=== PATIENT | male | born 1945 | race Caucasian/White ===

== ENCOUNTER 2018-11-03 08:48 | Emergency (ER) | payer MEDICARE, OTHER ==
--- NOTE | 2018-11-03 10:24 | ER Document Report ---
ED Medical Screen (RME) - General Chief Complaint: Weakness Stated Complaint: WEAKNESS Time Seen by Provider: 11/03/18 10:14 Mode of Arrival: Ambulatory Information source: Patient TRAVEL OUTSIDE OF THE [place] IN LAST 30 DAYS: No - HPI Patient complains to provider of: WEAKNESS, ABDO BLOATING Notes: 11/03/18 10:22 Patient here with complaints of weakness, shaking, abdominal bloating and decreased appetite. Patient states that this started 2 days ago. He woke up in the middle the night sweats shaking and drenched in sweat. Has been extremely thirsty and drinking a lot but has had no appetite. He denies any abdominal pain, but has had some abdominal bloating. His states that he had a very similar episode to this years ago and ended up diagnosed with diverticulitis even though he had no abdominal pain. She states that it was exactly the same as the episode he is having now. He denies any abdominal pain at this time. Exam Exam Nontoxic, no distress. Heart sounds normal. Coarse breath sounds throughout. No focal abdominal tenderness on limited triage abdominal exam. No CVA tenderness. Plan CBC, CMP, urinalysis, lipase. Saline lock. Accu-Chek. Since the patient has had similar symptoms in the past that were due to diverticulitis with similar presentation, I have ordered a CT of the abdomen pelvis with IV contrast to rule this out. An initial examination was made on the patient as part of the triage process, and it was determined a more comprehensive evaluation was necessary. Initial labs were ordered and patient was transferred to another provider in the ED who assumed care and finished evaluation and plan. - Related Data Allergies/Adverse Reactions: Sulfa (Sulfonamide Antibiotics) Allergy (Verified 11/03/18 08:49) Past Medical History - Past Medical History Cardiac Medical History: Reports: Hx Hypertension Renal/ Medical History: Denies: Hx Peritoneal Dialysis Physical Exam - Vital signs Vitals: Temp Pulse Resp BP Pulse Ox 98 F 71 16 138/54 H 93 11/03/18 08:59 11/03/18 08:59 11/03/18 08:59 11/03/18 08:59 11/03/18 08:59 Course - Vital Signs Vital signs: Temp Pulse Resp BP Pulse Ox 98 F 71 16 138/54 H 93 11/03/18 08:59 11/03/18 08:59 11/03/18 08:59 11/03/18 08:59 11/03/18 08:59
[2018-11-03 11:17] LABS: ABSOLUTE LYMPHOCYTES (AUTO) 0.7 10^3/uL (0.5-4.7); ABSOLUTE MONOCYTES (AUTO) 0.5 10^3/uL (0.1-1.4); ABSOLUTE NEUT (AUTO) 5.4 10^3/uL (1.7-8.2); BASOPHILS % (AUTO) 0.4 % (0-2); EOSINOPHILS % (AUTO) 0.1 % (0-6); HEMATOCRIT 48.1 % (37.9-51.0); HEMOGLOBIN 15.7 g/dL (13.5-17.0); LYMPHOCYTES % (AUTO) 10.1 % (13-45); MEAN CORPUSCULAR HEMOGLOBIN 29.1 pg (27.0-33.4); MEAN CORPUSCULAR HGB CONC 32.6 g/dL (32.0-36.0); MEAN CORPUSCULAR VOLUME 89 fl (80-97); MONOCYTES % (AUTO) 7.2 % (3-13); PLATELET COUNT 171 10^3/uL (150-450); RED BLOOD COUNT 5.39 10^6/uL (4.35-5.55); RED CELL DISTRIBUTION WIDTH 14.5 % (11.5-14.0); SEGMENTED NEUTROPHILS % (AUTO) 82.2 % (42-78); TOTAL CELLS COUNTED % (AUTO) 100 %; WHITE BLOOD COUNT 6.5 10^3/uL (4.0-10.5)
[2018-11-03 11:24] LABS: APPEARANCE,URINE CLEAR; BILIRUBIN,URINE NEGATIVE (NEGATIVE); COLOR,URINE AMBER; GLUCOSE, URINE NEGATIVE (NEGATIVE); KETONES,URINE NEGATIVE (NEGATIVE); LEUKOCYTE ESTERASE,URINE NEGATIVE (NEGATIVE); NITRITE,URINE NEGATIVE (NEGATIVE); PROTEIN,URINE 100 mg/dL (NEGATIVE); URINE SPECIFIC GRAVITY 1.027
[2018-11-03 11:40] LABS: ALANINE AMINOTRANSFERASE 37 U/L (21-72); ALBUMIN 4.1 g/dL (3.5-5.0); ALKALINE PHOSPHATASE 79 U/L (38-126); ANION GAP 11 (5-19); ASPARTATE AMINO TRANSFERASE 58 U/L (17-59); BILIRUBIN,DIRECT 0.4 mg/dL (0.0-0.4); BLOOD UREA NITROGEN 20 mg/dL (7-20); CALCIUM 9.5 mg/dL (8.4-10.2); CARBON DIOXIDE 31 mmol/L (22-30); CHLORIDE 99 mmol/L (98-107); GLUCOSE 110 mg/dL (75-110); LIPASE 23.2 U/L (23-300); POTASSIUM 4.1 mmol/L (3.6-5.0); SODIUM 140.5 mmol/L (137-145); TOTAL PROTEIN 7.3 g/dL (6.3-8.2)
--- NOTE | 2018-11-03 11:56 | RADIOLOGY REPORT (SQ) ---
EXAM DESCRIPTION: CHEST 2 VIEWS COMPLETED DATE/TIME: 11/03/2018 11:22 am REASON FOR STUDY: COUGH, POSSIBLE FEVER COMPARISON: None. EXAM PARAMETERS: NUMBER OF VIEWS: two views TECHNIQUE: Digital Frontal and Lateral radiographic views of the chest acquired. RADIATION DOSE: NA LIMITATIONS: none FINDINGS: LUNGS AND PLEURA: No opacities, masses or pneumothorax. No pleural effusion. MEDIASTINUM AND HILAR STRUCTURES: No masses or contour abnormalities. HEART AND VASCULAR STRUCTURES: Heart normal size. No evidence for failure. BONES: No acute findings. HARDWARE: None in the chest. OTHER: No other significant finding. IMPRESSION: NO ACUTE RADIOGRAPHIC FINDING IN THE CHEST. TECHNICAL DOCUMENTATION: JOB ID: [id number] [employer]- All Rights Reserved Reading location - IP/workstation name: [email or web address]
--- NOTE | 2018-11-03 12:36 | ER Document Report ---
ED General - General Chief Complaint: Weakness Stated Complaint: WEAKNESS Time Seen by Provider: 11/03/18 10:14 Mode of Arrival: Ambulatory Information source: Patient Notes: Patient is a 73-year-old male with past medical history as recorded including nonpainful diverticulitis in the past who presents with the onset 2 days ago of feeling a little sleepier than normal, eating a little less food, feeling some abdominal bloating without pain, and having some intermittent sweats. No fevers. Patient denies any headache, neck pain, chest pain, abdominal pain, weakness or numbness. Patient is visiting from [place]. No history of diabetes. Two normal bowel movements the last 48 hours. TRAVEL OUTSIDE OF THE [place] IN LAST 30 DAYS: No - Related Data Allergies/Adverse Reactions: Sulfa (Sulfonamide Antibiotics) Allergy (Verified 11/03/18 08:49) Past Medical History - General Information source: Patient - Social History Smoking Status: Current Every Day Smoker Family History: Reviewed & Not Pertinent Patient has suicidal ideation: No Patient has homicidal ideation: No - Past Medical History Cardiac Medical History: Reports: Hx Hypertension Renal/ Medical History: Denies: Hx Peritoneal Dialysis Review of Systems - Review of Systems Constitutional: denies: Fever EENT: denies: Eye discharge, Nose discharge Cardiovascular: denies: Chest pain, Palpitations Respiratory: denies: Short of breath Gastrointestinal: denies: Vomiting Genitourinary: denies: Dysuria Musculoskeletal: denies: Leg swelling Skin: Other - no hives. denies: Rash Neurological/Psychological: Other - no slurred speech -: Yes All other systems reviewed and negative Physical Exam - Vital signs Vitals: Temp Pulse Resp BP Pulse Ox 98 F 71 16 138/54 H 93 11/03/18 08:59 11/03/18 08:59 11/03/18 08:59 11/03/18 08:59 11/03/18 08:59 Notes: Reviewed vital signs and nursing note as charted by RN. CONSTITUTIONAL: Alert and oriented and responds appropriately to questions. Well-appearing; well-nourished HEAD: Normocephalic; atraumatic EYES: PERRL; Sclerae non-icteric ENT: Normal nose; no rhinorrhea; moist mucous membranes; pharynx without lesions noted NECK: Supple without meningismus; non-tender; no carotid bruit; no cervical lymphadenopathy, no masses CARD: Regular rate and rhythm; no murmurs; symmetric distal pulses RESP: Normal chest excursion without splinting or tachypnea; breath sounds clear and equal bilaterally; no wheezes, no rhonchi, no rales ABD/GI: Normal bowel sounds; non-distended; soft, non-tender; no palpable organomegaly or masses GI/: Patient has no inguinal masses, testicular pain or swelling BACK: The back appears normal and is non-tender to palpation EXT: Normal ROM in all joints; non-tender to palpation; no edema SKIN: No acute lesions noted NEURO: CN 2-12 intact; 5/5 bilateral upper and lower extremity strength with sensation intact to light touch PSYCH: The patient's mood and manner are appropriate. Grooming and personal hygiene are appropriate. Course - Re-evaluation Re-evalutation: Given the history and physical examination, basic labs, abdominal labs, CT scan of the abdomen and pelvis, EKG, troponin have been ordered. Patient has absolutely no chest pain, weakness or numbness, abdominal pain, fevers, or vomiting. He has had some intermittent abdominal bloating and some chills. Patient has been having excessive thirst with decreased appetite for food. I would like to assess for the possibility of diabetes, repeat nonpainful diverticulitis as the patient states he has had in the past, cardiac equivalent, or electrolyte abnormality. Patient has no focal neurological deficits, no complaints of weakness. Do not believe CT imaging of the head is necessary at this moment. 11/03/18 12:37 Labs thus far as recorded. No change in exam. 11/03/18 12:52 EKG shows heart of 60, normal sinus rhythm, PACs present, no obvious ST elevation or depression. 11/03/18 13:26 Labs as recorded. Hemoglobin as recorded. CT scan of the abdomen showing a small lesion as recorded. I have printed out a copy of the CT scan report. Vital signs are stable. Normal hemoglobin level. No weight loss recently. No abdominal pain on repeat examination. Normal troponin. EKG as recorded. I do not believe any other imaging or laboratory work is necessary at this particular moment. Patient is visiting from [place] and will take the CT scan report back to his primary care physician. - Vital Signs Vital signs: Temp Pulse Resp BP Pulse Ox 98 F 71 16 138/54 H 93 11/03/18 08:59 11/03/18 08:59 11/03/18 08:59 11/03/18 08:59 11/03/18 08:59 - Laboratory Result Diagrams: 11/03/18 10:58 11/03/18 10:58 Laboratory results interpreted by me: 11/03/18 11/03/18 11/03/18 10:58 10:58 10:58 RDW 14.5 H Seg Neutrophils % 82.2 H Lymphocytes % 10.1 L Carbon Dioxide 31 H POC Glucose Urine Protein 100 H Urine Blood SMALL H Urine Urobilinogen 2.0 H 11/03/18 11:01 RDW Seg Neutrophils % Lymphocytes % Carbon Dioxide POC Glucose 112 H Urine Protein Urine Blood Urine Urobilinogen Discharge - Discharge Clinical Impression: Abdominal bloating, Liver lesion, Chills (without fever) Condition: Good Disposition: HOME, SELF-CARE Additional Instructions: Come back immediately with any pain, fevers, vomiting, chest pain, shortness of breath, leg swelling, or any other acute problems. Please make sure that you take the CT scan report that we have provided to your primary care physician for further assessment and possibly an outpatient MRI.
--- NOTE | 2018-11-03 12:37 | RADIOLOGY REPORT (SQ) ---
EXAM DESCRIPTION: CT ABD/PELVIS WITH IV ONLY COMPLETED DATE/TIME: 11/03/2018 12:12 pm REASON FOR STUDY: ABDO BLOATING, HX OF DIVERTICULITIS COMPARISON: None. TECHNIQUE: CT scan of the abdomen and pelvis performed using helical scanning technique with dynamic intravenous contrast injection. No oral contrast. Images reviewed with lung, soft tissue, and bone windows. Reconstructed coronal and sagittal MPR images reviewed. Delayed images for evaluation of the urinary system also acquired. All images stored on PACS. All CT scanners at this facility use dose modulation, iterative reconstruction, and/or weight based d osing when appropriate to reduce radiation dose to as low as reasonably achievable (ALARA). [facility]: Dose Right [facility]: CareDose [facility]: Dose Right [facility]: Teradose 4D [facility]: momondo CONTRAST TYPE AND DOSE: contrast/concentration: Isovue 350.00 mg/ml; Total Contrast Delivered: 95.0 ml; Total Saline Delivered: 71.0 ml RENAL FUNCTION: BUN 20 creatinine 12 RADIATION DOSE: CT Rad equipment meets quality standard of care and radiation dose reduction techniq ues were employed. CTDIvol: 12.0 - 16.6 mGy. DLP: 1414 mGy-cm.. LIMITATIONS: None. FINDINGS: LOWER CHEST: No significant findings. No nodules or infiltrates. LIVER: There is a fairly well-circumscribed 2 cm rapidly enhancing lesion in the right lobe of the li nathaniel on image 21. This becomes almost isodense on the delayed images. There is a small subcapsular c yst on image 22. SPLEEN: Normal size. No focal lesions. PANCREAS: No masses. No significant calcifications. No adjacent inflammation or peripancreatic fluid collections. Pancreatic duct not dilated. GALLBLADDER: No identified stones by CT criteria. No inflammatory changes to suggest cholecystitis. ADRENAL GLANDS: No significant masses or asymmetry. RIGHT KIDNEY AND URETER: No solid masses. There are couple prominent cortical cysts. The larger camila sures almost 10 cm in diameter. No significant calcifications. No hydronephrosis or hydroureter. LEFT KIDNEY AND URETER: No solid masses. No significant calcifications. No hydronephrosis or hydr oureter. AORTA AND VESSELS: No aneurysm. No dissection. Renal arteries, SMA, celiac without stenosis. RETROPERITONEUM: No retroperitoneal adenopathy, hemorrhage or masses. BOWEL AND PERITONEAL CAVITY: There is a diverticulosis with diverticula scattered throughout the colo n. There is an area of focal wall thickening in the sigmoid colon seen best perhaps on image 68 or 6 9 APPENDIX: Not identified. PELVIS: No mass. No free fluid. Normal bladder. ABDOMINAL WALL: No masses. No hernias. BONES: Mild scoliosis and associated degenerative disc disease and spondylosis. OTHER: No other significant finding. IMPRESSION: 1. There is a 2 cm rapidly enhancing lesion in the right lobe of the liver. This could represent an atypical hemangioma. It could represent a metastatic lesion. Recommend MRI with [facility]ov[facility] t. 2. Diverticulosis coli. Cannot exclude acute diverticulitis in the sigmoid colon. Cannot exclude s igmoid neoplasm. Recommend follow-up study after treatment. 3. Osseous findings as described. TECHNICAL DOCUMENTATION: JOB ID: [id number] Quality ID # [id number]: Final reports with documentation of one or more dose reduction techniques (e.g., Au tomated exposure control, adjustment of the mA and/or kV according to patient size, use of iterative reconstruction technique) 2010 [employer]- All Rights Reserved Reading location - IP/workstation name: [email or web address]
[2018-11-03] MEDS ORDERED: HEPARIN SOD (PORCINE) 1,000 UNIT/ML 10 ML VIAL IV ONE (14:10)
[2018-11-03] MEDS ORDERED: HEPARIN SODIUM,PORCINE/D5W 25,000 UNIT/250 ML RTUINJ IV PRN (14:10)
[2018-11-03] MEDS ORDERED: ASPIRIN 325 MG TABLET PO ONE (14:15)
[2018-11-03] MEDS ORDERED: HEPARIN SODIUM,PORCINE/D5W 25,000 UNIT/250 ML RTUINJ IV ONE (14:20)
[2018-11-03 16:19] LABS: INTERNATIONAL RATION (INR) 1.06; PROTHROMBIN TIME 14.3 SEC (11.4-15.4)
[2018-11-03 16:20] LABS: PARTIAL THROMBOPLASTIN TIME 68.9 SEC (23.5-35.8)
[2018-11-03 20:27] VITALS: BP 123/69
--- NOTE | 2018-11-04 10:22 | EKG REPORT ---
SEVERITY:- ABNORMAL ECG - SINUS RHYTHM MULTIPLE ATRIAL PREMATURE COMPLEXES PROBABLE LEFT ATRIAL ABNORMALITY : Confirmed by: Cecil Mauricio 04-Nov-2018 10:21:40
== END 2018-11-03 20:49 | disposition short-term general hospital (02) ==
LOC: ER 08:48
DX: I21.4 Non-ST elevation (NSTEMI) myocardial infarction (principal); R14.0 Abdominal distension (gaseous); K76.9 Liver disease, unspecified; R68.83 Chills (without fever); R53.1 Weakness; F17.200 Nicotine dependence, unspecified, uncomplicated; I10 Essential (primary) hypertension; Z88.2 Allergy status to sulfonamides
CPT/HCPCS: 93005; 99291; 96365; 96366; 36415; 82962; 83690; 85025; 85610; 85730; 80053; 81001; 84484; 71046; 74177; 93010; J1644 ×2; A9270